=== PATIENT | male | born 1955 | race Caucasian/White ===

== ENCOUNTER 2020-03-09 11:33 | Inpatient (IN) | payer BC ==
[2020-03-06 11:06] LABS: BASOPHILS % (AUTO) 0.5 % (0-1); EOSINOPHILS # (AUTO) 0.1 X10'3 (0-0.9); EOSINOPHILS % (AUTO) 1.2 % (0-6); LYMPHOCYTES # (AUTO) 1.5 X10'3 (1.1-4.8); LYMPHOCYTES % (AUTO) 27.2 % (21-51); MEAN CORPUSCULAR HEMOGLOBIN 32.1 PG (27.0-31.0); MEAN CORPUSCULAR HGB CONC 33.3 g/dL (33.0-36.5); MEAN CORPUSCULAR VOLUME 96.4 FL (78-98); MEAN PLATELET VOLUME 7.7 FL (7.4-10.4); MONOCYTES # (AUTO) 0.6 X10'3 (0-0.9); MONOCYTES % (AUTO) 11.4 % (2-12); NEUTROPHILS # (AUTO) 3.2 X10'3 (1.8-7.7); NEUTROPHILS % (AUTO) 59.7 % (42-75); PRE OP HEMOGLOBIN 14.3 g/dL (14.0-17.9); PRE OP PLATELET COUNT 307 X10'3 (140-440); RED BLOOD COUNT 4.46 X10'6 (4.70-6.10); RED CELL DISTRIBUTION WIDTH 12.7 % (11.5-14.5)
[2020-03-06 11:20] LABS: ALBUMIN 3.8 G/DL (3.4-5.0); ALBUMIN/GLOBULIN RATIO 0.9 (1.1-1.5); ALKALINE PHOSPHATASE 57 IU/L (46-116); BLOOD UREA NITROGEN 19 MG/DL (7-18); CHLORIDE 106 MMOL/L (99-107); CREATININE 0.76 MG/DL (0.60-1.10); PRE OP ALT 25 U/L (30-65); PRE OP ANION GAP 10 (8-16); PRE OP AST 24 U/L (10-37); PRE OP BILIRUB, TOTAL 0.3 MG/DL (0.0-1.0); PRE OP GLUCOSE 89 MG/DL (70-104); PRE OP POTASSIUM 3.9 MMOL/L (3.4-5.1); PRE OP SODIUM 142 MMOL/L (135-145); TOTAL CARBON DIOXIDE 25.9 MMOL/L (24-32); TOTAL PROTEIN 8.2 G/DL (6.4-8.2); eGFR > 90 ML/MIN
[2020-03-09] VITALS (24 sets, daily range): BP systolic 96–129; BP diastolic 50–75
[~2020-03-09] VITALS: Ht 188 cm; Wt 90.7 kg
[~2020-03-09 11:33] MED LIST: ACET-1025 PO; NAPR220T67 PO; VANCOMYCIN 1,500MG inj. 1,500 MG in normal saline 500ml IV soln 500 ML IV ONE; acetaminophen 325mg tablet PO ONE; ceFAZolin 2gm in dextrose, iso 50 ML IV ONE; celeCOXIB 100mg capsule PO ONE; famotidine 20mg tablet PO ONE; gabapentin 300mg capsule PO ONE; metoclopramide 5 mg/ml inj IV ONE; oxyCODONE SR 10mg (sust. release) tab -2 tabs (20mg) PO ONE; tranexamic acid inj. 1,000 MG in normal saline 100 ML IV ONE; vancomycin 1,500 MG in NS 300ml IV soln IV ONE
--- NOTE | 2020-03-09 13:00 | NUR ---
COVID SWAB NOT RESULTED. PT WAS NEGATIVE FOR THE COVID SCREENING QUESTIONS.
[2020-03-09] MEDS: ringers solution, lacted 1,000 ML IV SCH ×2 (13:25→20:51)
[2020-03-09] MEDS ORDERED: vancomycin 1,000mg inj ONE ×2 (15:00→16:05)
[2020-03-09] MEDS ORDERED: tetracaine 1% (10mg/ml) pres. free inj. ONE (15:21)
[2020-03-09] MEDS ORDERED: morphine /PF 1mg/ml 10ml inj. ONE (15:23)
[2020-03-09] MEDS ORDERED: MIDAZolam 1mg/ml 10ml vial ONE (15:23)
[2020-03-09] MEDS ORDERED: propofol inj 20 ML IV ONE ×2 (15:41)
[2020-03-09] MEDS ORDERED: tobramycin sulfate 1.2gm vial IJ ONE (16:10)
[2020-03-09] MEDS ORDERED: ringers solution, lacted 1,000 ML IV SCH (16:18)
[2020-03-09] MEDS ORDERED: ROPIVAcaine 0.2%/PF PUMP/bolus 550 ML ADDCANAL SCH (16:18)
[2020-03-09] MEDS ORDERED: fentaNYL/PF 50MCG/1 ML 2ML syringe IV PRN ×2 (16:20)
[2020-03-09] MEDS ORDERED: ROPIVAcaine 0.2% (10 MG/5 ML) BOLUS INJECTION ADDCANAL PRN (16:20)
[2020-03-09] MEDS ORDERED: hydrALAZINE 20mg/ml inj. IV PRN (16:20)
[2020-03-09] MEDS ORDERED: morphine 2 MG/ML inj. syringe IV PRN (16:20)
[2020-03-09] MEDS ORDERED: ondansetron/PF 4mg/2ml inj IV PRN ×3 (16:20→17:45)
[2020-03-09] MEDS ORDERED: labetalol 20mg/4ml (5mg/ml) syringe IV PRN (16:20)
[2020-03-09] MEDS ORDERED: diphenhydrAMINE 50 mg/ml inj IV PRN (16:20)
[2020-03-09] MEDS ORDERED: morphine 4 MG/ML inj SYRINge IV PRN (16:20)
[2020-03-09] MEDS ORDERED: ePHEDrine 50MG/ML INJ. ONE (16:48)
[2020-03-09] MEDS ORDERED: ROPIVAcaine 0.5% (5mg/ml) 30ml vial ONE (16:48)
[2020-03-09] MEDS ORDERED: oxyCODONE/APAP 10/325mg tablet PO PRN (17:45)
[2020-03-09] MEDS ORDERED: HYDROmorphone inj. 0.5 MG/0.5 ML DISP.SYRIN IV PRN (17:45)
[2020-03-09] MEDS ORDERED: bisacodyl 10mg suppository rectal RC PRN (17:45)
[2020-03-09] MEDS ORDERED: HYDROmorphone 1 mg/ml syringe IV PRN (17:45)
[2020-03-09] MEDS ORDERED: acetaminophen 325mg tablet PO PRN (17:45)
[2020-03-09] MEDS ORDERED: diphenhydrAMINE 25mg capsule PO PRN ×2 (17:45)
[2020-03-09] MEDS ORDERED: magnesium hydroxide 30ml (MOM) UD suspension PO PRN (17:45)
--- NOTE | 2020-03-09 17:54 | NUR ---
RECEIVED FROM OR VIA BED WITH OHTF ACCOMPANIED BY ANESTHESIOLOGIST DR LOW, REPORT GIVEN. PT AWAKE AND ALERT AND DENIES PAIN AT THIS TIME. SPINAL SENSATION AT UMBILICUS.18 GAUGE PIV L WRIST PATENT AND RUNNING LR AT 100 ML/HR. PERIPHERAL PULSES PALPABLE, VSS, SKIN PINK AND WARM, KVNG DRESSING L KNEE CDI WITH KNEE WRAP, KNEE BRACE, AND POWDER PACK IN PLACE. ON Q BLOCK CATHETER IN PLACE. RESTING COMFORTABLY
[2020-03-09] MEDS: VANCOmycin 1250MG/NS 250ml Bag 250 ML IV SCH (18:00)
--- NOTE | 2020-03-09 19:54 | NUR ---
TRANSFERRED VIA BED WITH OHTF ACCOMPANIED BY MYSELF, REPORT GIVEN. PT AWAKE AND ALERT AND DENIES PAIN AT THIS TIME. SPINAL SENSATION AT UMBILICUS.18 GAUGE PIV L WRIST PATENT AND RUNNING LR AT 100 ML/HR. PERIPHERAL PULSES PALPABLE, VSS, SKIN PINK AND WARM, KVNG DRESSING L KNEE CDI WITH KNEE WRAP, KNEE BRACE, AND POWDER PACK IN PLACE. ON Q BLOCK CATHETER IN PLACE. RESTING COMFORTABLY
--- NOTE | 2020-03-09 19:56 | NUR ---
Patient in room ORTHO 4013. I have received report from KRISTY Canela and had the opportunity to ask questions and assume patient care.
[2020-03-09] MEDS: potassium cl 20mEq in 1/2 NS 1,000 ML IV SCH (20:35)
[2020-03-09] MEDS: ascorbic acid 500mg tablet PO SCH (20:36)
[2020-03-09] MEDS: gabapentin 300mg capsule PO SCH (20:37)
[2020-03-09] MEDS: sennosides 8.6mg tablet PO SCH (20:51)
[2020-03-09] MEDS ORDERED: tranexamic acid inj. 700 MG in normal saline 100ml IV soln 100 ML IV ONE (21:00)
[2020-03-09] MEDS: cefazolin/dext.iso 2gm/100ml 100 ML IV SCH (23:48)
[2020-03-10] MEDS: VANCOmycin 1250MG/NS 250ml Bag 250 ML IV SCH ×3 (02:14→17:55)
[2020-03-10 03:35] VITALS: BP 90/49
--- NOTE | 2020-03-10 05:30 | NUR ---
Pt. BP has been low 84/54 ,Dr. Young gave me a order for bolus NS .BP at 0645 was 95/55.We will continue with pt. care.
[2020-03-10] MEDS ORDERED: normal saline 1000ml 1,000 ML IVB ONE (05:47)
--- NOTE | 2020-03-10 06:44 | NUR ---
Problems reprioritized. Patient report given, questions answered & plan of care reviewed with KRISTY Lemos.
[2020-03-10 07:00] VITALS: BP 90/52
[2020-03-10 07:52] LABS: BASOPHILS % (AUTO) 0.2 % (0-1); EOSINOPHILS % (AUTO) 0.2 % (0-6); HEMATOCRIT 30.8 % (42.0-52.0); HEMOGLOBIN 10.4 g/dl (14.0-17.9); LYMPHOCYTES # (AUTO) 0.7 X10'3 (1.1-4.8); LYMPHOCYTES % (AUTO) 10.6 % (21-51); MEAN CORPUSCULAR HEMOGLOBIN 32.4 PG (27.0-31.0); MEAN CORPUSCULAR HGB CONC 33.9 g/dL (33.0-36.5); MEAN CORPUSCULAR VOLUME 95.5 FL (78-98); MEAN PLATELET VOLUME 7.7 FL (7.4-10.4); MONOCYTES # (AUTO) 0.7 X10'3 (0-0.9); MONOCYTES % (AUTO) 10.3 % (2-12); NEUTROPHILS # (AUTO) 5.3 X10'3 (1.8-7.7); NEUTROPHILS % (AUTO) 78.7 % (42-75); PLATELET COUNT 190 X10'3 (140-440); RED BLOOD COUNT 3.22 X10'6 (4.70-6.10); WHITE BLOOD COUNT 6.7 X10'3 (4.5-11.0)
[2020-03-10 07:53] LABS: ANION GAP 6 (8-16); CHLORIDE 106 MMOL/L (99-107); SODIUM 140 MMOL/L (135-145); TOTAL CARBON DIOXIDE 28.5 MMOL/L (24-32)
[2020-03-10] MEDS: cefazolin/dext.iso 2gm/100ml 100 ML IV SCH (08:10)
[2020-03-10] MEDS: potassium cl 20mEq in 1/2 NS 1,000 ML IV SCH ×3 (08:10→17:55)
[2020-03-10] MEDS: multivitamins, therapeutics tablet PO SCH (08:12)
[2020-03-10] MEDS: gabapentin 300mg capsule PO SCH ×3 (08:12→20:02)
[2020-03-10] MEDS: aspirin 325mg tablet PO SCH (08:13)
[2020-03-10] MEDS: ascorbic acid 500mg tablet PO SCH ×2 (08:13→19:56)
--- NOTE | 2020-03-10 09:33 | NUR ---
Pt attempting to urinate in urinal with 110ml out. Bladder scan revealed >578ml retention. Pt assisted up to BR to attempt to void in toilet, hat placed for accurate output measurement.
[2020-03-10 16:11] VITALS: BP 111/65
--- NOTE | 2020-03-10 16:31 | NUR ---
Joint consult: Pt s/p left TKA explant and Abx spacer placement seen at bedside provided with written and verbal protein education. Pt endorses a good appetite which is evident with documented 75-100% PO intake on regular diet. Pt requests no milk to drink and agrees to [place] yogurt q breakfast, d/w dietary. Pt denies food allergies, difficulty chewing/swallowing, or constipation/diarrhea. RD reviewed nutrition intervention options for constipation if needed as pt reports no BM today though currently receiving routine bowel care. RD contact information provided. Will remain available. Addendum: 03/10/20 at [address] Amended: Links added.
[2020-03-10 18:00] VITALS: BP 130/71
--- NOTE | 2020-03-10 18:25 | NUR ---
Problems reprioritized. Patient report given, questions answered & plan of care reviewed with Starla WAGNER.
--- NOTE | 2020-03-10 18:26 | NUR ---
Patient in room ORTH[facility] 4013. I have received report from Canelo WAGNER and had the opportunity to ask questions and assume patient care.
[2020-03-10] MEDS: celeCOXIB 100mg capsule PO SCH (19:56)
[2020-03-10] MEDS: lactobacillus rhamnosus 10,000 MMU CELLS/CAPSULE PO SCH (19:56)
[2020-03-10] MEDS: sennosides 8.6mg tablet PO SCH (20:01)
--- NOTE | 2020-03-10 20:04 | NUR ---
Patient has been having more pain. He turned his OnQ up to 6.
[2020-03-10 22:00] VITALS: BP 104/57
[2020-03-11] MEDS ORDERED: VANCOMYCIN LEVEL IV ONE (01:30)
[2020-03-11] MEDS: potassium cl 20mEq in 1/2 NS 1,000 ML IV SCH ×2 (01:42→04:22)
[2020-03-11 01:47] LABS: BASOPHILS % (AUTO) 0.5 % (0-1); EOSINOPHILS # (AUTO) 0.1 X10'3 (0-0.9); EOSINOPHILS % (AUTO) 0.9 % (0-6); HEMATOCRIT 29.7 % (42.0-52.0); HEMOGLOBIN 10.2 g/dl (14.0-17.9); LYMPHOCYTES # (AUTO) 1.2 X10'3 (1.1-4.8); LYMPHOCYTES % (AUTO) 19.2 % (21-51); MEAN CORPUSCULAR HEMOGLOBIN 33.1 PG (27.0-31.0); MEAN CORPUSCULAR HGB CONC 34.3 g/dL (33.0-36.5); MEAN CORPUSCULAR VOLUME 96.4 FL (78-98); MEAN PLATELET VOLUME 7.7 FL (7.4-10.4); MONOCYTES # (AUTO) 0.9 X10'3 (0-0.9); MONOCYTES % (AUTO) 14.9 % (2-12); NEUTROPHILS # (AUTO) 3.9 X10'3 (1.8-7.7); NEUTROPHILS % (AUTO) 64.5 % (42-75); PLATELET COUNT 161 X10'3 (140-440); RED BLOOD COUNT 3.08 X10'6 (4.70-6.10); RED CELL DISTRIBUTION WIDTH 12.3 % (11.5-14.5)
[2020-03-11] MEDS: VANCOmycin 1250MG/NS 250ml Bag 250 ML IV SCH (01:49)
[2020-03-11] MEDS: oxyCODONE/APAP 10/325mg tablet PO PRN ×2 (01:49→20:14)
[2020-03-11 01:56] LABS: ALBUMIN 2.7 G/DL (3.4-5.0); ANION GAP 7 (8-16); BLOOD UREA NITROGEN 10 MG/DL (7-18); BUN/CREATININE RATIO 12.8 (5.4-32.0); CHLORIDE 112 MMOL/L (99-107); CREATININE 0.78 MG/DL (0.60-1.10); GLUCOSE 105 MG/DL (70-104); POTASSIUM 3.9 MMOL/L (3.5-5.1); SODIUM 147 MMOL/L (135-145); TOTAL CARBON DIOXIDE 28.4 MMOL/L (24-32); VANCOMYCIN,TROUGH 11.7 UG/ML (6.0-14.0); eGFR > 90 ML/MIN
[2020-03-11 06:00] VITALS: BP 86/53
--- NOTE | 2020-03-11 06:20 | NUR ---
Problems reprioritized. Patient report given, questions answered & plan of care reviewed with Samantha RN.
--- NOTE | 2020-03-11 06:20 | NUR ---
Patient in room ORTH[facility] 4013. I have received report from KRISTY Cha and had the opportunity to ask questions and assume patient care.
[2020-03-11 07:00] VITALS: BP 94/60
[2020-03-11] MEDS: celeCOXIB 100mg capsule PO SCH ×2 (07:53→20:13)
[2020-03-11] MEDS: gabapentin 300mg capsule PO SCH ×3 (07:54→20:13)
[2020-03-11] MEDS: lactobacillus rhamnosus 10,000 MMU CELLS/CAPSULE PO SCH ×2 (07:54→20:13)
[2020-03-11] MEDS: ascorbic acid 500mg tablet PO SCH ×2 (07:55→20:13)
[2020-03-11] MEDS: aspirin 325mg tablet PO SCH (07:55)
[2020-03-11] MEDS: multivitamins, therapeutics tablet PO SCH (07:55)
[2020-03-11 10:00] VITALS: BP 102/65
[2020-03-11] MEDS: VANCOMYCIN 1,500MG inj. 1,500 MG in normal saline 500ml IV soln 500 ML IV SCH ×2 (11:04→17:46)
--- NOTE | 2020-03-11 12:09 | NUR ---
Student documentation: I have reviewed and agree with all interventions, assessments performed and documented by SN Tarun.
[2020-03-11 18:00] VITALS: BP 114/66
--- NOTE | 2020-03-11 18:35 | NUR ---
Patient in room ORTHO 4013. I have received report from Samantah WAGNER and had the opportunity to ask questions and assume patient care.
--- NOTE | 2020-03-11 18:49 | NUR ---
Problems reprioritized. Patient report given, questions answered & plan of care reviewed with KRISTY Cha.
[2020-03-11] MEDS: sennosides 8.6mg tablet PO SCH (20:13)
[2020-03-11 22:00] VITALS: BP 101/61
[2020-03-12] MEDS: VANCOMYCIN 1,500MG inj. 1,500 MG in normal saline 500ml IV soln 500 ML IV SCH ×3 (01:37→17:38)
[2020-03-12 06:00] VITALS: BP 105/71
--- NOTE | 2020-03-12 06:35 | NUR ---
Problems reprioritized. Patient report given, questions answered & plan of care reviewed with Sarah WAGNER.
--- NOTE | 2020-03-12 06:49 | NUR ---
Patient in room ORTHO 4013A. I have received report from KRISTY Cha and had the opportunity to ask questions and assume patient care.
--- NOTE | 2020-03-12 07:00 | NUR ---
Patient in room ORTH[facility] 4013. I have received report from Sarah WAGNER and had the opportunity to ask questions and assume patient care.
[2020-03-12] MEDS: aspirin 325mg tablet PO SCH (08:02)
[2020-03-12] MEDS: celeCOXIB 100mg capsule PO SCH ×2 (08:02→20:03)
[2020-03-12] MEDS: lactobacillus rhamnosus 10,000 MMU CELLS/CAPSULE PO SCH ×2 (08:02→20:03)
[2020-03-12] MEDS: ascorbic acid 500mg tablet PO SCH ×2 (08:02→20:03)
[2020-03-12] MEDS: gabapentin 300mg capsule PO SCH ×3 (08:03→20:03)
[2020-03-12] MEDS: multivitamins, therapeutics tablet PO SCH (08:03)
[2020-03-12] MEDS ORDERED: VANCOMYCIN LEVEL IV ONE (09:30)
[2020-03-12 09:36] LABS: BASOPHILS % (AUTO) 0.4 % (0-1); EOSINOPHILS # (AUTO) 0.1 X10'3 (0-0.9); EOSINOPHILS % (AUTO) 1.4 % (0-6); HEMOGLOBIN 10.8 g/dl (14.0-17.9); LYMPHOCYTES # (AUTO) 0.8 X10'3 (1.1-4.8); LYMPHOCYTES % (AUTO) 13.3 % (21-51); MEAN CORPUSCULAR HEMOGLOBIN 32.4 PG (27.0-31.0); MEAN CORPUSCULAR HGB CONC 33.8 g/dL (33.0-36.5); MEAN CORPUSCULAR VOLUME 95.8 FL (78-98); MEAN PLATELET VOLUME 7.9 FL (7.4-10.4); MONOCYTES # (AUTO) 0.6 X10'3 (0-0.9); MONOCYTES % (AUTO) 9.8 % (2-12); NEUTROPHILS # (AUTO) 4.4 X10'3 (1.8-7.7); NEUTROPHILS % (AUTO) 75.1 % (42-75); PLATELET COUNT 172 X10'3 (140-440); RED BLOOD COUNT 3.34 X10'6 (4.70-6.10); RED CELL DISTRIBUTION WIDTH 12.4 % (11.5-14.5); WHITE BLOOD COUNT 5.8 X10'3 (4.5-11.0)
[2020-03-12 10:00] VITALS: BP 97/62
--- NOTE | 2020-03-12 12:15 | NUR ---
Student documentation: I have reviewed all interventions, assessments performed and documented by Samara Yoo. Student Medication Administration: For this medication-pass time frame, all medication were reviewed, dispensed, administered and documented per hospital policy by Samara Yoo.
[2020-03-12 18:00] VITALS: BP 114/62
--- NOTE | 2020-03-12 18:18 | NUR ---
Problems reprioritized. Patient report given, questions answered & plan of care reviewed with KRISTY LEARY.
--- NOTE | 2020-03-12 18:19 | NUR ---
Patient in room ORTH[facility] 4013. I have received report from Sarah WAGNER and had the opportunity to ask questions and assume patient care.
[2020-03-12] MEDS: sennosides 8.6mg tablet PO SCH (20:03)
[2020-03-12 22:00] VITALS: BP 108/60
[2020-03-13] MEDS: VANCOMYCIN 1,500MG inj. 1,500 MG in normal saline 500ml IV soln 500 ML IV SCH ×2 (01:39→09:52)
[2020-03-13 06:00] VITALS: BP 113/77
--- NOTE | 2020-03-13 06:22 | NUR ---
Problems reprioritized. Patient report given, questions answered & plan of care reviewed with Elba WAGNER.
[2020-03-13] MEDS: celeCOXIB 100mg capsule PO SCH (09:42)
[2020-03-13] MEDS: lactobacillus rhamnosus 10,000 MMU CELLS/CAPSULE PO SCH (09:42)
[2020-03-13] MEDS: gabapentin 300mg capsule PO SCH ×2 (09:42→14:08)
[2020-03-13] MEDS: multivitamins, therapeutics tablet PO SCH (09:43)
[2020-03-13] MEDS: ascorbic acid 500mg tablet PO SCH (09:43)
[2020-03-13] MEDS: aspirin 325mg tablet PO SCH (09:43)
[2020-03-13 10:00] VITALS: BP 93/62
--- NOTE | 2020-03-13 15:32 | NUR ---
pt d/c with instructions, understanding of instructions and w/all belongings in wheelchair accompanied by to private vehicle to go to infusion therapy and f/u w/pcp and surgeon pt received 2 cold packs and 2 island dressings, as well as info on yonatan dressing and on q pump
== END 2020-03-13 15:15 | disposition home IV services (08) | DRG 468 ==
LOC: PAS 11:33 → EDSTATUS 14:30 → ORTHO 4S 17:42
PROVIDERS: ADMIT Orthopaedic Surgery; ATTEND Orthopaedic Surgery
PROC: 0SRD0EZ Replacement of Left Knee Joint with Articulating Spacer, Open Approach (ICD-10-PCS; 2020-03-09)
PROC: 3E0T3BZ Introduction of Anesthetic Agent into Peripheral Nerves and Plexi, Percutaneous Approach (ICD-10-PCS; 2020-03-09)
PROC: 0SPD0JZ Removal of Synthetic Substitute from Left Knee Joint, Open Approach (ICD-10-PCS; principal; 2020-03-09 15:17)
PROC: 02HV33Z Insertion of Infusion Device into Superior Vena Cava, Percutaneous Approach (ICD-10-PCS; 2020-03-10)
PROC: 4A02X4A Measurement of Cardiac Electrical Activity, Guidance, External Approach (ICD-10-PCS; 2020-03-10)
DX: T84.54XA Infection and inflammatory reaction due to internal left knee prosthesis, initial encounter (principal); Y83.1 Surgical operation with implant of artificial internal device as the cause of abnormal reaction of the patient, or of later complication, without mention of misadventure at the time of the procedure; Y92.89 Other specified places as the place of occurrence of the external cause
CPT/HCPCS: 36415; 36573; 71045; 73560; 76937; 80048; 80051; 80053; 80202; 82948; 85025; 86885; 86900; 86901; 87070; 87075; 87081; 97110; 97116; 97161; 97530; G0378; J2250; J2270; J2405; J2704; J2765; J2795; J3260; J3370; J3480; J7030; J7040; J7120

== ENCOUNTER 2020-06-06 06:12 | Inpatient (IN) | payer BC ==
[2020-05-30 16:09] LABS: BASOPHILS # (AUTO) 0.1 X10'3 (0-0.2); BASOPHILS % (AUTO) 0.7 % (0-1); EOSINOPHILS # (AUTO) 0.1 X10'3 (0-0.9); LYMPHOCYTES # (AUTO) 1.4 X10'3 (1.1-4.8); MEAN CORPUSCULAR HEMOGLOBIN 30.9 PG (27.0-31.0); MEAN CORPUSCULAR HGB CONC 33.4 g/dL (33.0-36.5); MEAN CORPUSCULAR VOLUME 92.3 FL (78-98); MEAN PLATELET VOLUME 7.6 FL (7.4-10.4); MONOCYTES # (AUTO) 0.9 X10'3 (0-0.9); MONOCYTES % (AUTO) 13.4 % (2-12); NEUTROPHILS # (AUTO) 4.5 X10'3 (1.8-7.7); NEUTROPHILS % (AUTO) 64.9 % (42-75); PRE OP HEMATOCRIT 44.2 % (42.0-52.0); PRE OP HEMOGLOBIN 14.8 g/dL (14.0-17.9); PRE OP PLATELET COUNT 216 X10'3 (140-440); RED BLOOD COUNT 4.78 X10'6 (4.70-6.10)
[2020-05-30 16:19] LABS: PRE OP INR 0.9 INR; PRE OP PROTIME 9.7 SECONDS (9.0-12.0)
[2020-05-30 16:21] LABS: ALBUMIN 4.2 G/DL (3.4-5.0); ALBUMIN/GLOBULIN RATIO 1.2 (1.1-1.5); ALKALINE PHOSPHATASE 69 IU/L (46-116); BLOOD UREA NITROGEN 23 MG/DL (7-18); BUN/CREATININE RATIO 30.7 (5.4-32.0); CALCIUM 8.8 MG/DL (8.5-10.1); CHLORIDE 106 MMOL/L (99-107); CREATININE 0.75 MG/DL (0.60-1.10); PRE OP ALT 27 U/L (30-65); PRE OP ANION GAP 7 (8-16); PRE OP AST 16 U/L (10-37); PRE OP BILIRUB, TOTAL 0.2 MG/DL (0.0-1.0); PRE OP GLUCOSE 76 MG/DL (70-104); PRE OP POTASSIUM 3.4 MMOL/L (3.4-5.1); PRE OP SODIUM 142 MMOL/L (135-145); TOTAL PROTEIN 7.7 G/DL (6.4-8.2); eGFR > 90 ML/MIN
[2020-06-06] VITALS (18 sets, daily range): BP systolic 88–118; BP diastolic 45–86
[~2020-06-06] VITALS: Ht 188 cm; Wt 95.3 kg
[~2020-06-06 06:12] MED LIST changes: -ACET-1025 PO; -NAPR220T67 PO; +NO HOME MEDS; +TRANEXAMIC ACID 1 GM IN NACL,ISO-OS 100 ML IV ONE; -VANCOMYCIN 1,500MG inj. 1,500 MG in normal saline 500ml IV soln 500 ML IV ONE; -ceFAZolin 2gm in dextrose, iso 50 ML IV ONE; +cefazolin/dext.iso 2gm/50ml 50 ML IV ONE; +ringers solution, lacted 1,000 ML IV SCH; -vancomycin 1,500 MG in NS 300ml IV soln IV ONE
[2020-06-06] MEDS ORDERED: vancomycin 1,000mg inj ONE (06:38)
[2020-06-06] MEDS ORDERED: bisacodyl 10mg suppository rectal RC PRN (06:50)
[2020-06-06] MEDS ORDERED: acetaminophen 325mg tablet PO PRN (06:50)
[2020-06-06] MEDS ORDERED: oxyCODONE/APAP 10/325mg tablet PO PRN ×2 (06:50)
[2020-06-06] MEDS ORDERED: ondansetron/PF 4mg/2ml inj IV PRN ×2 (06:50→10:35)
[2020-06-06] MEDS ORDERED: diphenhydrAMINE 25mg capsule PO PRN ×2 (06:50)
[2020-06-06] MEDS ORDERED: magnesium hydroxide 30ml (MOM) UD suspension PO PRN (06:50)
[2020-06-06] MEDS ORDERED: fentaNYL/PF 50MCG/1 ML 2ML syringe ONE (08:31)
[2020-06-06] MEDS ORDERED: MIDAZolam 1mg/ml 10ml vial ONE (08:31)
[2020-06-06] MEDS ORDERED: propofol inj 20 ML IV ONE ×2 (08:43→08:45)
[2020-06-06] MEDS ORDERED: LIDOcaine 1%/PF 5ML 10 MG/ML VIAL ONE (08:45)
[2020-06-06] MEDS ORDERED: ROPIVAcaine 0.5% (5mg/ml) 30ml vial ONE (09:50)
[2020-06-06] MEDS ORDERED: ePHEDrine 50MG/ML INJ. ONE (09:50)
[2020-06-06] MEDS ORDERED: albumin (Human) 5% 250ml 250 ML IV ONE (10:29)
[2020-06-06] MEDS ORDERED: ringers solution, lacted 1,000 ML IV SCH (10:34)
[2020-06-06] MEDS ORDERED: meperidine/PF 25mg/ml syringe IV PRN ×3 (10:35)
[2020-06-06] MEDS ORDERED: proCHLORperazine 10 MG/2 ml inj IV PRN (10:35)
[2020-06-06] MEDS ORDERED: morphine 2 MG/ML inj. syringe IV PRN (10:35)
[2020-06-06] MEDS ORDERED: morphine 4 MG/ML inj SYRINge IV PRN (10:35)
[2020-06-06] MEDS ORDERED: ROPIVAcaine 0.2% (10 MG/5 ML) BOLUS INJECTION ADDCANAL PRN (10:40)
[2020-06-06] MEDS ORDERED: tranexamic acid 100mg/ml inj. ONE (10:49)
[2020-06-06] MEDS ORDERED: ROPIVAcaine 0.2%/PF PUMP/bolus 550 ML ADDCANAL SCH (11:30)
--- NOTE | 2020-06-06 12:00 | NUR ---
Received from OR via BED , accompanied by Anesthesiologist DR RANDOLPH and report given by Anesthesiolgist. PATIENT WAKING UP, DENIES PAIN, V/S WNL, NEUROVASCULAR CHECKS INTACT, 18G PIV RUE , KVNG DRESSING TO LEFT KNEE CDI W/ COLD POWDER PACK AND ON QUE PUMP AT 4ML/HR , SENSATION L-3.
--- NOTE | 2020-06-06 13:10 | NUR ---
PATIENT A&OX4, DENIES PAIN, V/S WNL, NEUROVASCULAR CHECKS INTACT, 18G PIV LUE , DRESSING TO LEFT KNEE CDI W/ COLD POWDER PACK AND IMMOBILIZER BRACE W/ SCD ON. F/C DRAINING CLEAR YELLOW URINE. . PATIENT TAKEN TO 4022B WITH ALL BELONGINGS AND HOOKED UP TO MONITORS IN ROOM AND REPORT GIVEN TO DIRECTOR SECURITY MANAGEMENT WHO HAS TAKEN OVER PATIENT CARE.
[2020-06-06] MEDS: cefazolin/dext.iso 2gm/50ml 50 ML IV SCH ×2 (17:12→23:28)
[2020-06-06] MEDS: potassium cl 20mEq in 1/2 NS 1,000 ML IV SCH ×2 (17:12→22:46)
[2020-06-06] MEDS ORDERED: tranexamic acid 1gm/0.7% sal. 100 ML IV ONE (18:00)
--- NOTE | 2020-06-06 18:57 | NUR ---
Problems reprioritized. Patient report given, questions answered & plan of care reviewed with KRISTY ROSA.
[2020-06-06] MEDS ORDERED: VANCOMYCIN 1,500MG inj. 1,500 MG in normal saline 500ml IV soln 300 ML IV SCH (20:00)
[2020-06-06] MEDS: ascorbic acid 500mg tablet PO SCH (20:25)
[2020-06-06] MEDS ORDERED: sennosides 8.6mg tablet PO SCH (21:00)
[2020-06-07 02:00] VITALS: BP 91/52
[2020-06-07 06:00] VITALS: BP 90/54
--- NOTE | 2020-06-07 06:11 | NUR ---
REPORT GIVEN TO KRISTY FORBES.
[2020-06-07 06:38] LABS: BASOPHILS % (AUTO) 0.2 % (0-1); EOSINOPHILS % (AUTO) 0.2 % (0-6); HEMATOCRIT 30.5 % (42.0-52.0); HEMOGLOBIN 10.4 g/dl (14.0-17.9); LYMPHOCYTES # (AUTO) 0.8 X10'3 (1.1-4.8); LYMPHOCYTES % (AUTO) 9.2 % (21-51); MEAN CORPUSCULAR HEMOGLOBIN 31.7 PG (27.0-31.0); MEAN CORPUSCULAR HGB CONC 34.2 g/dL (33.0-36.5); MEAN CORPUSCULAR VOLUME 92.5 FL (78-98); MEAN PLATELET VOLUME 7.9 FL (7.4-10.4); MONOCYTES % (AUTO) 11.1 % (2-12); NEUTROPHILS # (AUTO) 6.9 X10'3 (1.8-7.7); NEUTROPHILS % (AUTO) 79.3 % (42-75); PLATELET COUNT 158 X10'3 (140-440); RED CELL DISTRIBUTION WIDTH 13.9 % (11.5-14.5); WHITE BLOOD COUNT 8.6 X10'3 (4.5-11.0)
[2020-06-07] MEDS: potassium cl 20mEq in 1/2 NS 1,000 ML IV SCH (06:46)
[2020-06-07 06:54] LABS: ANION GAP 5 (8-16); CHLORIDE 107 MMOL/L (99-107); POTASSIUM 3.9 MMOL/L (3.5-5.1); SODIUM 140 MMOL/L (135-145)
[2020-06-07] MEDS ORDERED: KETOROLAC TROMETHAMINE IU ONE ×5 (07:30)
[2020-06-07] MEDS ORDERED: CLONIDINE IU ONE ×5 (07:30)
[2020-06-07] MEDS ORDERED: ROPIVACAINE IU ONE ×5 (07:30)
[2020-06-07] MEDS ORDERED: [UNRECOGNIZED DRUG - OTHER] IU ONE ×5 (07:30)
[2020-06-07] MEDS ORDERED: ASPI-1 PO (07:54)
[2020-06-07] MEDS ORDERED: ONQPUMP ADDCANAL (07:54)
[2020-06-07] MEDS ORDERED: multivitamins, therapeutics tablet PO SCH (08:00)
[2020-06-07] MEDS: ascorbic acid 500mg tablet PO SCH (08:05)
[2020-06-07] MEDS ORDERED: aspirin 325mg tablet PO SCH (08:30)
[2020-06-07 10:00] VITALS: BP 99/53
== END 2020-06-07 11:10 | disposition home or self-care (01) | DRG 467 ==
LOC: PAS 06:12 → ORTHO 4S 06:46
PROVIDERS: ADMIT Orthopaedic Surgery; ATTEND Orthopaedic Surgery
PROC: 0SRD0J9 Replacement of Left Knee Joint with Synthetic Substitute, Cemented, Open Approach (ICD-10-PCS; 2020-06-06)
PROC: 3E0T3BZ Introduction of Anesthetic Agent into Peripheral Nerves and Plexi, Percutaneous Approach (ICD-10-PCS; 2020-06-06)
PROC: 0SPD0JZ Removal of Synthetic Substitute from Left Knee Joint, Open Approach (ICD-10-PCS; principal; 2020-06-06 08:27)
DX: T84.54XA Infection and inflammatory reaction due to internal left knee prosthesis, initial encounter (principal); D62 Acute posthemorrhagic anemia; Y83.8 Other surgical procedures as the cause of abnormal reaction of the patient, or of later complication, without mention of misadventure at the time of the procedure; Y92.89 Other specified places as the place of occurrence of the external cause
CPT/HCPCS: Z7506; Z7508; 36415; 73560; 80051; 80053; 82948; 85025; 85610; 85730; 86885; 86900; 86901; 87070; 87075; 87081; 87635; 93005; 97116; 97161; 97530; A4215; A6454; A7000; A9272; C1713; C1776; G0378; J2250; J2704; J2765; J2795; J3010; J3370; J3480; J7040; J7120; P9045